=== PATIENT | male | born 1965 | race Two or more races ===

== ENCOUNTER 2017-08-13 17:28 | Inpatient (IN) | payer MEDICAID ==
[~2017-08-13] VITALS: Ht 162.6 cm; Wt 55.4 kg
[2017-08-13 18:52] LABS: Basophils # (auto) 0.1 uL; Eosinophils # (auto) 0.1 uL; Eosinophils % (auto) 1.5 % (0.0-7.0); Hematocrit 38.1 % (41.0-53.0); Hemoglobin 12.2 g/dL (13.5-17.5); Lymphocytes # (auto) 2.6 uL; Lymphocytes % (auto) 32.1 % (10.0-50.0); Mean Corpuscular Hemoglobin 23.9 pg (28.0-32.0); Mean Corpuscular Hgb Conc. 31.9 g/dL (32.0-36.0); Mean Corpuscular Volume 74.9 fL (80.0-100.0); Monocytes # (auto) 0.4 uL; Monocytes % (auto) 5.1 % (0.0-12.0); Neutrophils # (auto) 4.8 uL; Neutrophils % (auto) 60.3 % (37.0-80.0); Nucleated Red Blood Cells % 0.1 %; Platelet Count (auto) 359 10^3/uL (140-450); Red Blood Cells 5.09 10^6/uL (4.5-5.90)
[2017-08-13 19:08] LABS: Albumin 2.3 g/dL (3.4-5.0); BUN/Creatinine Ratio 20.5; Bilirubin, Total 0.2 mg/dL (0.2-1.0); Calcium 8.2 mg/dL (8.5-10.1); Potassium 5.3 mmol/L (3.5-5.1); Total Protein 7.4 g/dL (6.4-8.2)
[2017-08-13] MEDS ORDERED: SODIUM CHLORIDE 0.9% 250 ML IV ONE (21:30)
[2017-08-13] MEDS ORDERED: SODIUM CHLORIDE 0.9% 1,000 ML IV ONE ×2 (21:30→22:00)
[2017-08-13] MEDS ORDERED: InsuLIN REG 1unit/0.01ml Soln (100units/ml) IV ONE (21:30)
[2017-08-13] MEDS ORDERED: DEXTROSE (50%) 50ML SYRG IV PRN ×2 (23:30→23:45)
[2017-08-13] MEDS: ACCU-CHEK COMFORT CURVE STRIP VI SCH (23:48)
[2017-08-13] MEDS: InsuLIN REG 1unit/0.01ml Soln (100units/ml) SC SCH (23:51)
[2017-08-14] MEDS ORDERED: ACCU-CHEK COMFORT CURVE STRIP VI SCH
[2017-08-14] MEDS ORDERED: InsuLIN REG 1unit/0.01ml Soln (100units/ml) SC SCH
[2017-08-14] MEDS ORDERED: cloNIDine HCL 0.1 MG TAB PO ONE (01:00)
[2017-08-14] MEDS ORDERED: TEMAZEPAM 15 MG CAP PO PRN (03:15)
[2017-08-14] MEDS ORDERED: cloNIDine HCL 0.1 MG TAB PO PRN (03:15)
[2017-08-14] MEDS ORDERED: NITROGLYCERIN 0.4 MG SL TAB SL PRN (03:15)
[2017-08-14] MEDS ORDERED: MORPHINE SULFATE 4 MG/ML SYR/VIAL IV PRN (03:15)
[2017-08-14] MEDS: InsuLIN REG 1unit/0.01ml Soln (100units/ml) SC SCH ×5 (03:30→20:10)
[2017-08-14] MEDS: SODIUM CHLORIDE 0.9% 1,000 ML IV SCH ×2 (03:30→06:31)
[2017-08-14] MEDS: ACCU-CHEK COMFORT CURVE STRIP VI SCH ×5 (03:30→20:10)
[2017-08-14 04:33] LABS: Albumin 1.8 g/dL (3.4-5.0); BUN/Creatinine Ratio 24.6; Calcium 8.2 mg/dL (8.5-10.1); Potassium 4.2 mmol/L (3.5-5.1)
[2017-08-14 04:36] LABS: Bilirubin, Total 0.1 mg/dL (0.2-1.0); Total Protein 6.3 g/dL (6.4-8.2)
[2017-08-14 05:10] VITALS: BP 130/86
[2017-08-14 05:46] VITALS: BP 130/86
[2017-08-14] MEDS ORDERED: InsuLIN REG 1unit/0.01ml Soln (100units/ml) ONE (08:15)
[2017-08-14] MEDS: FAMOTIDINE 20 MG TAB PO SCH ×2 (08:56→20:09)
[2017-08-14] MEDS: ENOXAPARIN SOD 40 MG/0.4 ML SYRINGE SC SCH (08:56)
[2017-08-14] MEDS: ACETAMINOPHEN 325 MG TAB PO PRN (08:56)
[2017-08-14] MEDS: amLODIPine BESYLATE 5 MG TAB PO SCH (08:57)
[2017-08-14 09:48] VITALS: BP 154/94
[2017-08-14 13:44] LABS: % Iron Saturation 12.5 % (20-55)
[2017-08-14 14:02] VITALS: BP 169/107
[2017-08-14 15:10] LABS: Alcohol, Urine < 3.0 mg/dL (0-5); Amphetamine Screen, Urine NEGATIVE (NEGATIVE); Barbiturate Scree,Urine NEGATIVE (NEGATIVE); Benzodiazephine Screen, Urine NEGATIVE (NEGATIVE); Cannabinoid Screen, Urine NEGATIVE (NEGATIVE); Cocaine Screen, Urine NEGATIVE (NEGATIVE); Opiate Scree,Urine NEGATIVE (NEGATIVE); Phencyclidine Screen, Urine NEGATIVE (NEGATIVE)
[2017-08-14 16:29] VITALS: BP 144/92
[2017-08-14] MEDS: HYDROcodone-ACET 5/325MG TAB PO PRN (20:09)
[2017-08-14] MEDS: INSULIN 70/30 1unit/0.01ml Susp (100units/ml) SC SCH (22:00)
[2017-08-14 22:57] VITALS: BP 155/100
[2017-08-15] MEDS: ACCU-CHEK COMFORT CURVE STRIP VI SCH ×6 (00:22→20:26)
[2017-08-15] MEDS: InsuLIN REG 1unit/0.01ml Soln (100units/ml) SC SCH ×5 (00:22→17:00)
[2017-08-15 05:57] VITALS: BP 150/102
[2017-08-15 06:04] LABS: BUN/Creatinine Ratio 25.2; Calcium 7.8 mg/dL (8.5-10.1); Potassium 4.4 mmol/L (3.5-5.1)
[2017-08-15 08:00] VITALS: BP 158/101
[2017-08-15] MEDS: HYDROcodone-ACET 5/325MG TAB PO PRN ×2 (08:44→23:07)
[2017-08-15] MEDS: FAMOTIDINE 20 MG TAB PO SCH ×2 (09:52→20:22)
[2017-08-15] MEDS: ENOXAPARIN SOD 40 MG/0.4 ML SYRINGE SC SCH (09:52)
[2017-08-15] MEDS: amLODIPine BESYLATE 5 MG TAB PO SCH (09:53)
[2017-08-15] MEDS: ONDANSETRON HCL 4 MG/2 ML VIAL IV PRN ×2 (09:58→18:38)
[2017-08-15] MEDS: INSULIN 70/30 1unit/0.01ml Susp (100units/ml) SC SCH ×2 (09:58→20:22)
[2017-08-15] MEDS ORDERED: DEXTROSE (50%) 50ML SYRG IV PRN (11:15)
[2017-08-15] MEDS ORDERED: ISOSORBIDE MONONITRATE 60 MG TAB PO ONE (11:15)
[2017-08-15 12:38] VITALS: BP 145/94
[2017-08-15 16:26] VITALS: BP 139/92
[2017-08-15 21:29] VITALS: BP 138/94
[2017-08-15] MEDS ORDERED: ATORVASTATIN 20 MG TAB PO SCH (22:00)
[2017-08-15] MEDS ORDERED: InsuLIN REG 1unit/0.01ml Soln (100units/ml) SC SCH (22:00)
[2017-08-15] MEDS: hydrALAZINE HCL 25 MG TAB PO SCH (22:00)
[2017-08-16 05:00] VITALS: BP 146/90
[2017-08-16] MEDS: InsuLIN REG 1unit/0.01ml Soln (100units/ml) SC SCH ×2 (05:50→11:30)
[2017-08-16] MEDS: ACCU-CHEK COMFORT CURVE STRIP VI SCH ×2 (05:50→11:30)
[2017-08-16] MEDS: ACETAMINOPHEN 325 MG TAB PO PRN (05:57)
[2017-08-16] MEDS ORDERED: FERROUS SULFATE 325 MG TAB PO SCH (08:00)
[2017-08-16] MEDS: HYDROcodone-ACET 5/325MG TAB PO PRN (08:21)
[2017-08-16 09:36] VITALS: BP 140/99
[2017-08-16] MEDS: FAMOTIDINE 20 MG TAB PO SCH (09:40)
[2017-08-16] MEDS: hydrALAZINE HCL 25 MG TAB PO SCH (09:42)
[2017-08-16] MEDS: ENOXAPARIN SOD 40 MG/0.4 ML SYRINGE SC SCH (09:44)
[2017-08-16] MEDS: INSULIN 70/30 1unit/0.01ml Susp (100units/ml) SC SCH (09:59)
[2017-08-16] MEDS: ONDANSETRON HCL 4 MG/2 ML VIAL IV PRN (09:59)
[2017-08-16] MEDS ORDERED: amLODIPine BESYLATE 5 MG TAB PO SCH (10:00)
[2017-08-16] MEDS ORDERED: ISOSORBIDE MONONITRATE 60 MG TAB PO SCH (10:00)
[2017-08-16] MEDS ORDERED: HYDR25TA35 PO (10:32)
[2017-08-16] MEDS ORDERED: FER325T PO (10:32)
[2017-08-16] MEDS ORDERED: ATOR20TA50 PO (10:32)
[2017-08-16] MEDS ORDERED: ISO60SRT PO (10:32)
[2017-08-16] MEDS ORDERED: AML5T PO (10:32)
[2017-08-16 11:22] VITALS: BP 144/93
[2017-08-16 13:00] VITALS: BP 144/93
[2017-08-16 16:41] VITALS: BP 109/75
== END 2017-08-16 18:34 | disposition home or self-care (01) | DRG 420 ==
LOC: ER 17:36 → TELE-WESTW 17:37 → WEST WING 08-14 04:15 → ER 08-14 04:15 → WEST WING 08-16 00:04
PROVIDERS: ADMIT Nurse Practitioner; ATTEND Internal Medicine
DX: E11.65 Type 2 diabetes mellitus with hyperglycemia (principal); N17.0 Acute kidney failure with tubular necrosis; E43 Unspecified severe protein-calorie malnutrition; E11.21 Type 2 diabetes mellitus with diabetic nephropathy; I13.10 Hypertensive heart and chronic kidney disease without heart failure, with stage 1 through stage 4 chronic kidney disease, or unspecified chronic kidney disease; E86.0 Dehydration; D50.9 Iron deficiency anemia, unspecified; F17.210 Nicotine dependence, cigarettes, uncomplicated; E11.40 Type 2 diabetes mellitus with diabetic neuropathy, unspecified; N18.2 Chronic kidney disease, stage 2 (mild); E11.22 Type 2 diabetes mellitus with diabetic chronic kidney disease; G47.00 Insomnia, unspecified; E11.319 Type 2 diabetes mellitus with unspecified diabetic retinopathy without macular edema; E87.5 Hyperkalemia; N18.3 Chronic kidney disease, stage 3 (moderate); Z83.3 Family history of diabetes mellitus; Z89.411 Acquired absence of right great toe; Z91.14 Patient's other noncompliance with medication regimen; Z68.21 Body mass index [BMI] 21.0-21.9, adult
CPT/HCPCS: 36415; 71045; 76775; 80048; 80053; 80061; 80307; 82728; 82962; 83036; 83540; 83550; 85025; 93005; 96361; 96374; J1815; J2405

== ENCOUNTER 2017-09-26 22:39 | Inpatient (IN) | payer MEDICAID ==
[~2017-09-26] VITALS: Ht 162.6 cm
[~2017-09-26 22:39] MED LIST: AML5T PO; ATOR20TA50 PO; FER325T PO; HYDR25TA35 PO; ISO60SRT PO
[2017-09-27 00:13] LABS: Basophils # (auto) 0.1 uL; Eosinophils # (auto) 0.3 uL; Hemoglobin 8.5 g/dL (13.5-17.5); Lymphocytes # (auto) 1.7 uL; Monocytes # (auto) 0.8 uL
[2017-09-27 00:16] LABS: Eosinophils % (auto) 4.1 % (0.0-7.0); Hematocrit 26.2 % (41.0-53.0); Lymphocytes % (auto) 24.3 % (10.0-50.0); Mean Corpuscular Hemoglobin 24.1 pg (28.0-32.0); Mean Corpuscular Hgb Conc. 32.6 g/dL (32.0-36.0); Monocytes % (auto) 11.5 % (0.0-12.0); Neutrophils # (auto) 4.1 uL; Neutrophils % (auto) 59.1 % (37.0-80.0); Nucleated Red Blood Cells % 0.1 %; Platelet Count (auto) 435 10^3/uL (140-450); Red Blood Cells 3.54 10^6/uL (4.5-5.90)
[2017-09-27 00:20] LABS: Albumin 2.3 g/dL (3.4-5.0); Calcium 7.8 mg/dL (8.5-10.1)
[2017-09-27 00:21] LABS: Red Cell Distribution Width 21.8 % (11.8-14.3)
[2017-09-27 00:23] LABS: Bilirubin, Total 0.3 mg/dL (0.2-1.0); Total Protein 6.9 g/dL (6.4-8.2)
[2017-09-27 07:39] LABS: INR 1.02 (0.9-1.15); Partial Thromboplastin Time 30.7 sec (22.64-33.71); Prothrombin Time 11.1 sec (9.37-12.3)
[2017-09-27] MEDS ORDERED: LORazepam 0.5 MG TAB PO PRN (08:45)
[2017-09-27] MEDS ORDERED: ACETAMINOPHEN 500 MG TAB PO PRN (08:45)
[2017-09-27] MEDS ORDERED: LACTULOSE 20Gm/30ML SOLN PO PRN (08:45)
[2017-09-27] MEDS ORDERED: NITROGLYCERIN 0.4 MG SL TAB SL PRN (08:45)
[2017-09-27] MEDS ORDERED: DEXTROSE (50%) 50ML SYRG IV PRN (08:45)
[2017-09-27] MEDS ORDERED: MORPHINE SULFATE 4 MG/ML SYR/VIAL IV PRN ×2 (08:45)
[2017-09-27] MEDS ORDERED: PROMETHAZINE HCL 25 MG/ML 1ML IV PRN (08:45)
[2017-09-27] MEDS ORDERED: LIDOCAINE 2% JELLY 11ml (GLYDO) ONE (09:08)
[2017-09-27] MEDS ORDERED: CARVEDILOL 3.125 MG TAB PO ONE (09:15)
[2017-09-27] MEDS ORDERED: cefTRIAXone 1GM/10ml IVPUSH 10 ML IV ONE (10:00)
[2017-09-27] MEDS: ASPirin 81 mg TAB PO SCH (10:56)
[2017-09-27] MEDS: PANTOPRAZOLE 40 MG TAB PO SCH (10:56)
[2017-09-27] MEDS: ENALAPRIL MALEATE 2.5 MG TAB PO SCH (10:58)
[2017-09-27] MEDS: FUROSEMIDE 40 MG/4 ML VIAL IV SCH ×2 (10:58→18:10)
[2017-09-27] MEDS: ENOXAPARIN SOD 40 MG/0.4 ML SYRINGE SC SCH (10:59)
[2017-09-27] MEDS: NITROGLYCERIN 0.2MG/HR TOPICAL PATCH TD SCH (11:00)
[2017-09-27] MEDS: InsuLIN REG 1unit/0.01ml Soln (100units/ml) SC SCH ×3 (11:01→22:07)
[2017-09-27] MEDS: ACCU-CHEK COMFORT CURVE STRIP VI SCH ×3 (11:01→21:49)
[2017-09-27 11:41] LABS: Urine Amorphous Crystal FEW /hpf (None Seen); Urine Bacteria FEW /hpf (None Seen); Urine Blood 2+ /uL (Negative); Urine Mucus FEW (None Seen); Urine Specific Gravity 1.013 (1.001-1.035); Urine WBC 4 /hpf (0 - 3)
[2017-09-27 12:15] LABS: Alcohol, Urine < 3.0 mg/dL (0-5); Amphetamine Screen, Urine NEGATIVE (NEGATIVE); Barbiturate Scree,Urine NEGATIVE (NEGATIVE); Benzodiazephine Screen, Urine NEGATIVE (NEGATIVE); Cannabinoid Screen, Urine NEGATIVE (NEGATIVE); Cocaine Screen, Urine NEGATIVE (NEGATIVE); Opiate Scree,Urine NEGATIVE (NEGATIVE); Phencyclidine Screen, Urine NEGATIVE (NEGATIVE)
[2017-09-27 12:26] LABS: Hematocrit 25.3 % (41.0-53.0); Hemoglobin 8.1 g/dL (13.5-17.5)
[2017-09-27 13:00] VITALS: BP 140/82
[2017-09-27] MEDS: CLINDAMYCIN 600MG IV 50 ML IV SCH ×2 (13:44→21:47)
[2017-09-27] MEDS: SODIUM CHLOR 0.9% PF (SALINE LOCK) 10ML VIAL/SYR IV SCH ×2 (13:44→21:49)
[2017-09-27 17:00] VITALS: BP 146/75
[2017-09-27] MEDS ORDERED: MORPHINE SULFATE 8mg/ml INJ SDV IV PRN ×2 (18:00)
[2017-09-27 18:14] LABS: Hemoglobin 8.3 g/dL (13.5-17.5)
[2017-09-27 18:16] LABS: Hematocrit 25.9 % (41.0-53.0)
[2017-09-27] MEDS: CARVEDILOL 3.125 MG TAB PO SCH (21:48)
[2017-09-27 22:00] VITALS: BP 131/72
[2017-09-28 02:07] LABS: Hemoglobin 8.3 g/dL (13.5-17.5)
[2017-09-28 05:00] VITALS: BP 126/75
[2017-09-28] MEDS: FUROSEMIDE 40 MG/4 ML VIAL IV SCH ×2 (06:26→16:59)
[2017-09-28] MEDS: CLINDAMYCIN 600MG IV 50 ML IV SCH ×2 (06:26→14:15)
[2017-09-28] MEDS: ACCU-CHEK COMFORT CURVE STRIP VI SCH ×4 (06:27→21:45)
[2017-09-28] MEDS: InsuLIN REG 1unit/0.01ml Soln (100units/ml) SC SCH ×4 (06:27→21:53)
[2017-09-28] MEDS: SODIUM CHLOR 0.9% PF (SALINE LOCK) 10ML VIAL/SYR IV SCH ×3 (06:27→21:45)
[2017-09-28 07:04] LABS: Basophils # (auto) 0.1 uL; Basophils % (auto) 0.9 % (0.0-2.0); Monocytes # (auto) 0.7 uL; White Blood Cell 6.4 10^3/uL (4.4-10.8)
[2017-09-28 07:10] LABS: Eosinophils # (auto) 0.3 uL; Eosinophils % (auto) 5.3 % (0.0-7.0); Hematocrit 25.5 % (41.0-53.0); Hemoglobin 8.2 g/dL (13.5-17.5); Lymphocytes % (auto) 31.8 % (10.0-50.0); Mean Corpuscular Hgb Conc. 32.3 g/dL (32.0-36.0); Mean Corpuscular Volume 74.2 fL (80.0-100.0); Monocytes % (auto) 10.8 % (0.0-12.0); Neutrophils # (auto) 3.3 uL; Neutrophils % (auto) 51.2 % (37.0-80.0); Nucleated Red Blood Cells % 0.2 %; Platelet Count (auto) 400 10^3/uL (140-450); Red Blood Cells 3.44 10^6/uL (4.5-5.90)
[2017-09-28 07:21] LABS: Albumin 2.1 g/dL (3.4-5.0); Bilirubin, Total 0.3 mg/dL (0.2-1.0); Calcium 7.9 mg/dL (8.5-10.1); Potassium 5.3 mmol/L (3.5-5.1); Total Protein 6.6 g/dL (6.4-8.2)
[2017-09-28 09:00] VITALS: BP 126/72
[2017-09-28] MEDS ORDERED: cefTRIAXone 1GM/10ml IVPUSH 10 ML IV SCH (09:00)
[2017-09-28] MEDS: ENOXAPARIN SOD 40 MG/0.4 ML SYRINGE SC SCH (09:31)
[2017-09-28] MEDS: NITROGLYCERIN 0.2MG/HR TOPICAL PATCH TD SCH (09:33)
[2017-09-28] MEDS: PANTOPRAZOLE 40 MG TAB PO SCH (09:34)
[2017-09-28] MEDS: CARVEDILOL 3.125 MG TAB PO SCH ×2 (09:34→21:45)
[2017-09-28] MEDS: ENALAPRIL MALEATE 2.5 MG TAB PO SCH (09:34)
[2017-09-28] MEDS: ASPirin 81 mg TAB PO SCH (09:35)
[2017-09-28] MEDS ORDERED: POTASSIUM CHL 20 Meq TABLET PO SCH (10:00)
[2017-09-28 13:00] VITALS: BP 145/84
[2017-09-28 17:11] VITALS: BP 137/94
[2017-09-28 22:00] VITALS: BP 154/97
[2017-09-29 05:00] VITALS: BP 143/82
[2017-09-29] MEDS: SODIUM CHLOR 0.9% PF (SALINE LOCK) 10ML VIAL/SYR IV SCH ×3 (06:04→22:24)
[2017-09-29] MEDS: FUROSEMIDE 40 MG/4 ML VIAL IV SCH ×2 (06:04→17:17)
[2017-09-29] MEDS: ACCU-CHEK COMFORT CURVE STRIP VI SCH ×4 (06:05→22:25)
[2017-09-29] MEDS: InsuLIN REG 1unit/0.01ml Soln (100units/ml) SC SCH ×4 (06:19→22:55)
[2017-09-29 06:40] LABS: Calcium 7.9 mg/dL (8.5-10.1)
[2017-09-29 06:47] LABS: Potassium 5.7 mmol/L (3.5-5.1)
[2017-09-29] MEDS ORDERED: SODIUM POLYSTYRENE SULF 15GM/60ML SUSP PO ONE (07:00)
[2017-09-29 09:12] VITALS: BP 142/89
[2017-09-29] MEDS: PANTOPRAZOLE 40 MG TAB PO SCH (10:32)
[2017-09-29] MEDS: ASPirin 81 mg TAB PO SCH (10:32)
[2017-09-29] MEDS: CARVEDILOL 3.125 MG TAB PO SCH ×2 (10:33→22:24)
[2017-09-29] MEDS: NITROGLYCERIN 0.2MG/HR TOPICAL PATCH TD SCH (10:34)
[2017-09-29] MEDS: ENOXAPARIN SOD 40 MG/0.4 ML SYRINGE SC SCH (10:34)
[2017-09-29 13:00] VITALS: BP 155/96
[2017-09-29 17:09] VITALS: BP 153/92
[2017-09-29] MEDS ORDERED: cefTRIAXone 1GM/10ml IVPUSH 10 ML IV ONE (20:00)
[2017-09-29 22:00] VITALS: BP 155/99
[2017-09-29] MEDS: NYSTATIN TOPICAL POWDER 15GM TOP SCH (23:34)
[2017-09-30 05:00] VITALS: BP 156/98
[2017-09-30] MEDS: SODIUM CHLOR 0.9% PF (SALINE LOCK) 10ML VIAL/SYR IV SCH ×3 (06:14→20:21)
[2017-09-30] MEDS: FUROSEMIDE 40 MG/4 ML VIAL IV SCH ×2 (06:14→20:19)
[2017-09-30] MEDS: ACCU-CHEK COMFORT CURVE STRIP VI SCH ×4 (06:14→23:55)
[2017-09-30 06:26] LABS: Basophils # (auto) 0.1 uL; Eosinophils # (auto) 0.4 uL; Lymphocytes # (auto) 1.8 uL; Lymphocytes % (auto) 30.1 % (10.0-50.0); Mean Corpuscular Hgb Conc. 32.7 g/dL (32.0-36.0); Monocytes # (auto) 0.7 uL; White Blood Cell 5.9 10^3/uL (4.4-10.8)
[2017-09-30 06:29] LABS: Hematocrit 25.5 % (41.0-53.0); Hemoglobin 8.3 g/dL (13.5-17.5); Mean Corpuscular Hemoglobin 23.9 pg (28.0-32.0); Mean Corpuscular Volume 73.2 fL (80.0-100.0); Monocytes % (auto) 11.3 % (0.0-12.0); Neutrophils % (auto) 51.6 % (37.0-80.0); Nucleated Red Blood Cells % 0.1 %; Platelet Count (auto) 388 10^3/uL (140-450); Red Blood Cells 3.48 10^6/uL (4.5-5.90)
[2017-09-30] MEDS: InsuLIN REG 1unit/0.01ml Soln (100units/ml) SC SCH ×4 (06:31→22:00)
[2017-09-30 06:37] LABS: Red Cell Distribution Width 22.3 % (11.8-14.3)
[2017-09-30 06:50] LABS: Calcium 7.9 mg/dL (8.5-10.1); Potassium 5.2 mmol/L (3.5-5.1)
[2017-09-30 06:57] LABS: BUN/Creatinine Ratio 33.3
[2017-09-30 09:00] VITALS: BP 136/87
[2017-09-30] MEDS: NYSTATIN TOPICAL POWDER 15GM TOP SCH ×2 (10:12→23:51)
[2017-09-30] MEDS: NITROGLYCERIN 0.2MG/HR TOPICAL PATCH TD SCH (10:12)
[2017-09-30] MEDS: cefTRIAXone 1GM/10ml IVPUSH 10 ML IV SCH (10:12)
[2017-09-30] MEDS: CARVEDILOL 3.125 MG TAB PO SCH ×2 (10:13→23:50)
[2017-09-30] MEDS: PANTOPRAZOLE 40 MG TAB PO SCH (10:13)
[2017-09-30] MEDS: ASPirin 81 mg TAB PO SCH (10:13)
[2017-09-30] MEDS: ENOXAPARIN SOD 40 MG/0.4 ML SYRINGE SC SCH (10:14)
[2017-09-30 13:00] VITALS: BP 156/84
[2017-09-30] MEDS ORDERED: ALBUMIN 25% 100 ML IV ONE (15:00)
[2017-09-30 17:22] VITALS: BP 159/92
[2017-09-30 18:12] LABS: % Iron Saturation 8.3 % (20-55)
[2017-09-30 18:22] LABS: Folate (Folic Acid) 15.58 ng/mL (5.38-24)
[2017-09-30] MEDS: FERROUS SULFATE 325 MG TAB PO SCH (18:43)
[2017-09-30] MEDS ORDERED: IOHEXOL 300 MG/ML 100ML BOTTLE IJ ONE (19:30)
[2017-09-30] MEDS ORDERED: GASTROGRAFIN 30 ML SOL ONE (19:30)
[2017-09-30 22:00] VITALS: BP 155/95
[2017-10-01 04:57] VITALS: BP 166/92
[2017-10-01] MEDS: SODIUM CHLOR 0.9% PF (SALINE LOCK) 10ML VIAL/SYR IV SCH ×3 (07:01→21:27)
[2017-10-01] MEDS: ACCU-CHEK COMFORT CURVE STRIP VI SCH ×4 (07:02→21:47)
[2017-10-01] MEDS: FUROSEMIDE 40 MG/4 ML VIAL IV SCH ×2 (07:02→18:21)
[2017-10-01] MEDS: InsuLIN REG 1unit/0.01ml Soln (100units/ml) SC SCH ×4 (07:03→21:47)
[2017-10-01 07:16] LABS: Potassium 5.3 mmol/L (3.5-5.1)
[2017-10-01 07:21] LABS: Calcium 8.5 mg/dL (8.5-10.1)
[2017-10-01 09:00] VITALS: BP 120/87
[2017-10-01] MEDS: PANTOPRAZOLE 40 MG TAB PO SCH (09:03)
[2017-10-01] MEDS: cefTRIAXone 1GM/10ml IVPUSH 10 ML IV SCH (09:03)
[2017-10-01] MEDS: FERROUS SULFATE 325 MG TAB PO SCH (09:03)
[2017-10-01] MEDS: ASPirin 81 mg TAB PO SCH (09:03)
[2017-10-01] MEDS: ENOXAPARIN SOD 40 MG/0.4 ML SYRINGE SC SCH (09:04)
[2017-10-01] MEDS: CARVEDILOL 3.125 MG TAB PO SCH ×2 (09:04→21:28)
[2017-10-01] MEDS: NYSTATIN TOPICAL POWDER 15GM TOP SCH ×2 (11:23→21:30)
[2017-10-01] MEDS ORDERED: SODIUM POLYSTYRENE SULF 15GM/60ML SUSP PO ONE (11:45)
[2017-10-01] MEDS ORDERED: MIDAZOLAM HCL 1MG/1ML-2 ML VIAL ONE (12:21)
[2017-10-01] MEDS ORDERED: fentaNYL CITRATE 100 MCG/2 ML VL ONE (12:21)
[2017-10-01 13:00] VITALS: BP 134/84
[2017-10-01] MEDS ORDERED: LIDOCAINE 2% (LOCAL ANESTH.) PF 5ml SDV ONE (13:44)
[2017-10-01 17:00] VITALS: BP 171/99
[2017-10-01] MEDS: SODIUM POLYSTYRENE SULF 15GM/60ML SUSP PO SCH (21:29)
[2017-10-01] MEDS: HYDROcodone-ACET 5/325MG TAB PO PRN (21:38)
[2017-10-01] MEDS: TEMAZEPAM 15 MG CAP PO PRN (21:39)
[2017-10-01 22:00] VITALS: BP 165/100
[2017-10-02 05:00] VITALS: BP 147/91
[2017-10-02] MEDS: SODIUM CHLOR 0.9% PF (SALINE LOCK) 10ML VIAL/SYR IV SCH ×3 (06:56→22:05)
[2017-10-02] MEDS: InsuLIN REG 1unit/0.01ml Soln (100units/ml) SC SCH ×4 (06:57→22:05)
[2017-10-02] MEDS: FUROSEMIDE 40 MG/4 ML VIAL IV SCH (06:57)
[2017-10-02] MEDS: ACCU-CHEK COMFORT CURVE STRIP VI SCH ×4 (06:58→22:05)
[2017-10-02 09:00] VITALS: BP 177/92
[2017-10-02] MEDS: ASPirin 81 mg TAB PO SCH (10:00)
[2017-10-02] MEDS: NYSTATIN TOPICAL POWDER 15GM TOP SCH ×2 (10:00→22:05)
[2017-10-02 10:51] LABS: BUN/Creatinine Ratio 27.6; Calcium 8.2 mg/dL (8.5-10.1); Potassium 4.8 mmol/L (3.5-5.1)
[2017-10-02] MEDS: SODIUM POLYSTYRENE SULF 15GM/60ML SUSP PO SCH ×2 (11:22→22:05)
[2017-10-02] MEDS: CARVEDILOL 3.125 MG TAB PO SCH ×2 (11:22→22:04)
[2017-10-02] MEDS: PANTOPRAZOLE 40 MG TAB PO SCH (11:22)
[2017-10-02] MEDS: ENOXAPARIN SOD 40 MG/0.4 ML SYRINGE SC SCH (11:22)
[2017-10-02] MEDS ORDERED: amLODIPine BESYLATE 5 MG TAB PO ONE (11:45)
[2017-10-02] MEDS: cefTRIAXone 1GM/10ml IVPUSH 10 ML IV SCH (12:13)
[2017-10-02] MEDS: SODIUM FERR GLUC 62.5MG/5ML 125 MG in SODIUM CHL 0.9% 100 ML IV SCH (12:13)
[2017-10-02 13:00] VITALS: BP 164/94
[2017-10-02 17:09] VITALS: BP 158/83
[2017-10-02 22:00] VITALS: BP 158/92
[2017-10-02] MEDS: HYDROcodone-ACET 5/325MG TAB PO PRN (22:04)
[2017-10-02] MEDS: TEMAZEPAM 15 MG CAP PO PRN (22:05)
[2017-10-03 05:00] VITALS: BP 145/86
[2017-10-03] MEDS: SODIUM CHLOR 0.9% PF (SALINE LOCK) 10ML VIAL/SYR IV SCH ×3 (06:00→22:00)
[2017-10-03] MEDS: ACCU-CHEK COMFORT CURVE STRIP VI SCH ×4 (06:31→22:25)
[2017-10-03 06:32] LABS: Basophils # (auto) 0.1 uL; Basophils % (auto) 1.2 % (0.0-2.0); Hemoglobin 8.1 g/dL (13.5-17.5); Lymphocytes # (auto) 1.5 uL; Neutrophils # (auto) 3.9 uL; Nucleated Red Blood Cells % 0.1 %; White Blood Cell 6.6 10^3/uL (4.4-10.8)
[2017-10-03] MEDS: InsuLIN REG 1unit/0.01ml Soln (100units/ml) SC SCH ×4 (06:32→22:00)
[2017-10-03 06:36] LABS: Eosinophils # (auto) 0.2 uL; Eosinophils % (auto) 3.7 % (0.0-7.0); Hematocrit 24.9 % (41.0-53.0); Lymphocytes % (auto) 22.4 % (10.0-50.0); Mean Corpuscular Hemoglobin 24.2 pg (28.0-32.0); Mean Corpuscular Hgb Conc. 32.6 g/dL (32.0-36.0); Mean Corpuscular Volume 74.1 fL (80.0-100.0); Monocytes # (auto) 0.9 uL; Neutrophils % (auto) 59.7 % (37.0-80.0); Platelet Count (auto) 305 10^3/uL (140-450); Red Blood Cells 3.36 10^6/uL (4.5-5.90)
[2017-10-03 06:38] LABS: Red Cell Distribution Width 22.2 % (11.8-14.3)
[2017-10-03 06:59] LABS: BUN/Creatinine Ratio 25.2; Calcium 7.6 mg/dL (8.5-10.1); Potassium 3.6 mmol/L (3.5-5.1)
[2017-10-03 08:00] VITALS: BP 162/94
[2017-10-03 09:07] LABS: Hepatitis B Surface Antigen Negative (Negative)
[2017-10-03] MEDS ORDERED: SODIUM CHLORIDE 0.9% 1,000 ML IV SCH (09:30)
[2017-10-03 09:50] LABS: Hepatitis C Antibody Negative (Negative)
[2017-10-03 09:51] LABS: Hepatitis A Ab IgM Negative; Hepatitis B Core IgM Negative
[2017-10-03] MEDS: PANTOPRAZOLE 40 MG TAB PO SCH (10:04)
[2017-10-03] MEDS: CARVEDILOL 3.125 MG TAB PO SCH ×2 (10:05→22:00)
[2017-10-03] MEDS: amLODIPine BESYLATE 5 MG TAB PO SCH (10:05)
[2017-10-03] MEDS: HYDROcodone-ACET 5/325MG TAB PO PRN ×2 (10:15→17:32)
[2017-10-03] MEDS: NYSTATIN TOPICAL POWDER 15GM TOP SCH ×2 (10:53→22:00)
[2017-10-03] MEDS: ERTAPENEM SOD INJ 1 GM in SODIUM CHL 0.9% 50 ML IV SCH (10:53)
[2017-10-03 12:00] VITALS: BP 157/86
[2017-10-03] MEDS: SODIUM FERR GLUC 62.5MG/5ML 125 MG in SODIUM CHL 0.9% 100 ML IV SCH (15:05)
[2017-10-03 17:00] VITALS: BP 148/87
[2017-10-03] MEDS: SODIUM CHLORIDE 0.9% 1,000 ML IV SCH (19:21)
[2017-10-03 22:04] VITALS: BP 139/84
[2017-10-03] MEDS: TEMAZEPAM 15 MG CAP PO PRN (22:42)
[2017-10-04] MEDS: HYDROcodone-ACET 5/325MG TAB PO PRN ×3 (00:12→21:49)
[2017-10-04] MEDS: SODIUM CHLORIDE 0.9% 1,000 ML IV SCH (03:45)
[2017-10-04 04:57] VITALS: BP 149/98
[2017-10-04] MEDS: ACCU-CHEK COMFORT CURVE STRIP VI SCH ×4 (06:18→21:48)
[2017-10-04] MEDS: SODIUM CHLOR 0.9% PF (SALINE LOCK) 10ML VIAL/SYR IV SCH ×3 (06:18→21:52)
[2017-10-04] MEDS: InsuLIN REG 1unit/0.01ml Soln (100units/ml) SC SCH ×4 (06:18→21:48)
[2017-10-04 06:47] LABS: Calcium 7.7 mg/dL (8.5-10.1); Potassium 3.7 mmol/L (3.5-5.1)
[2017-10-04 08:00] VITALS: BP 161/95
[2017-10-04 08:42] VITALS: BP 161/95
[2017-10-04] MEDS: amLODIPine BESYLATE 5 MG TAB PO SCH (09:35)
[2017-10-04] MEDS: CARVEDILOL 3.125 MG TAB PO SCH ×2 (09:35→21:48)
[2017-10-04] MEDS: PANTOPRAZOLE 40 MG TAB PO SCH (09:35)
[2017-10-04] MEDS: NYSTATIN TOPICAL POWDER 15GM TOP SCH ×2 (09:36→21:48)
[2017-10-04] MEDS: ERTAPENEM SOD INJ 1 GM in SODIUM CHL 0.9% 50 ML IV SCH (10:40)
[2017-10-04] MEDS: SOD CHL 0.45% 1,000 ML IV SCH ×2 (11:11→21:30)
[2017-10-04] MEDS: SODIUM FERR GLUC 62.5MG/5ML 125 MG in SODIUM CHL 0.9% 100 ML IV SCH (12:00)
[2017-10-04 13:00] VITALS: BP 144/77
[2017-10-04 16:51] VITALS: BP 130/81
[2017-10-04] MEDS: TEMAZEPAM 15 MG CAP PO PRN (21:49)
[2017-10-04 22:00] VITALS: BP 129/77
[2017-10-05] VITALS (7 sets, daily range): BP systolic 122–150; BP diastolic 74–97
[2017-10-05] MEDS: SODIUM CHLOR 0.9% PF (SALINE LOCK) 10ML VIAL/SYR IV SCH ×3 (06:00→22:00)
[2017-10-05] MEDS: SOD CHL 0.45% 1,000 ML IV SCH ×2 (06:35→15:55)
[2017-10-05] MEDS: InsuLIN REG 1unit/0.01ml Soln (100units/ml) SC SCH ×4 (06:36→22:01)
[2017-10-05] MEDS: ACCU-CHEK COMFORT CURVE STRIP VI SCH ×4 (06:36→22:00)
[2017-10-05 07:14] LABS: Basophils # (auto) 0.1 uL; Basophils % (auto) 1.1 % (0.0-2.0); Eosinophils # (auto) 0.3 uL; Hemoglobin 8.2 g/dL (13.5-17.5); Monocytes # (auto) 0.8 uL; Nucleated Red Blood Cells % 0.1 %
[2017-10-05 07:21] LABS: Eosinophils % (auto) 4.3 % (0.0-7.0); Hematocrit 25.1 % (41.0-53.0); Lymphocytes # (auto) 1.9 uL; Mean Corpuscular Hemoglobin 24.5 pg (28.0-32.0); Mean Corpuscular Hgb Conc. 32.8 g/dL (32.0-36.0); Mean Corpuscular Volume 74.8 fL (80.0-100.0); Monocytes % (auto) 12.5 % (0.0-12.0); Neutrophils # (auto) 3.4 uL; Neutrophils % (auto) 52.1 % (37.0-80.0); Platelet Count (auto) 299 10^3/uL (140-450); Red Blood Cells 3.35 10^6/uL (4.5-5.90); White Blood Cell 6.4 10^3/uL (4.4-10.8)
[2017-10-05 07:28] LABS: Red Cell Distribution Width 21.6 % (11.8-14.3)
[2017-10-05 07:33] LABS: BUN/Creatinine Ratio 26.8; Calcium 7.8 mg/dL (8.5-10.1); Potassium 4.2 mmol/L (3.5-5.1)
[2017-10-05] MEDS: PANTOPRAZOLE 40 MG TAB PO SCH (09:30)
[2017-10-05] MEDS: amLODIPine BESYLATE 5 MG TAB PO SCH (09:31)
[2017-10-05] MEDS: ERTAPENEM SOD INJ 1 GM in SODIUM CHL 0.9% 50 ML IV SCH (09:32)
[2017-10-05] MEDS: CARVEDILOL 3.125 MG TAB PO SCH ×2 (09:32→22:00)
[2017-10-05] MEDS: HYDROcodone-ACET 5/325MG TAB PO PRN ×2 (09:40→20:12)
[2017-10-05] MEDS: NYSTATIN TOPICAL POWDER 15GM TOP SCH ×2 (09:43→22:01)
[2017-10-05] MEDS: SODIUM FERR GLUC 62.5MG/5ML 125 MG in SODIUM CHL 0.9% 100 ML IV SCH (14:21)
[2017-10-05] MEDS: TEMAZEPAM 15 MG CAP PO PRN (22:11)
[2017-10-06] MEDS: SOD CHL 0.45% 1,000 ML IV SCH ×3 (04:10→21:22)
[2017-10-06 05:00] VITALS: BP 152/97
[2017-10-06] MEDS: SODIUM CHLOR 0.9% PF (SALINE LOCK) 10ML VIAL/SYR IV SCH ×3 (05:54→21:21)
[2017-10-06] MEDS: InsuLIN REG 1unit/0.01ml Soln (100units/ml) SC SCH ×4 (06:37→21:55)
[2017-10-06] MEDS: ACCU-CHEK COMFORT CURVE STRIP VI SCH ×4 (06:37→21:20)
[2017-10-06 08:00] VITALS: BP 149/88
[2017-10-06 09:08] VITALS: BP 149/88
[2017-10-06] MEDS: PANTOPRAZOLE 40 MG TAB PO SCH (09:28)
[2017-10-06] MEDS: amLODIPine BESYLATE 5 MG TAB PO SCH (09:28)
[2017-10-06] MEDS: HYDROcodone-ACET 5/325MG TAB PO PRN ×2 (09:28→20:18)
[2017-10-06] MEDS: NYSTATIN TOPICAL POWDER 15GM TOP SCH ×2 (09:29→21:21)
[2017-10-06] MEDS: CARVEDILOL 3.125 MG TAB PO SCH ×2 (09:30→21:20)
[2017-10-06] MEDS: ERTAPENEM SOD INJ 1 GM in SODIUM CHL 0.9% 50 ML IV SCH (09:37)
[2017-10-06] MEDS: SODIUM FERR GLUC 62.5MG/5ML 125 MG in SODIUM CHL 0.9% 100 ML IV SCH (11:24)
[2017-10-06 13:52] VITALS: BP 146/70
[2017-10-06 17:37] VITALS: BP 147/95
[2017-10-06] MEDS: TEMAZEPAM 15 MG CAP PO PRN (21:20)
[2017-10-06 21:44] VITALS: BP 136/91
[2017-10-07 04:43] VITALS: BP 134/75
[2017-10-07] MEDS: SOD CHL 0.45% 1,000 ML IV SCH ×2 (05:42→18:18)
[2017-10-07] MEDS: InsuLIN REG 1unit/0.01ml Soln (100units/ml) SC SCH ×4 (06:19→21:38)
[2017-10-07] MEDS: SODIUM CHLOR 0.9% PF (SALINE LOCK) 10ML VIAL/SYR IV SCH ×3 (06:19→21:24)
[2017-10-07] MEDS: ACCU-CHEK COMFORT CURVE STRIP VI SCH ×4 (06:20→21:25)
[2017-10-07] MEDS: HYDROcodone-ACET 5/325MG TAB PO PRN ×2 (09:12→19:29)
[2017-10-07 09:39] VITALS: BP 143/97
[2017-10-07] MEDS: ERTAPENEM SOD INJ 1 GM in SODIUM CHL 0.9% 50 ML IV SCH (10:37)
[2017-10-07] MEDS: PANTOPRAZOLE 40 MG TAB PO SCH (10:38)
[2017-10-07] MEDS: amLODIPine BESYLATE 5 MG TAB PO SCH (10:38)
[2017-10-07] MEDS: CARVEDILOL 3.125 MG TAB PO SCH ×2 (10:39→21:25)
[2017-10-07] MEDS: NYSTATIN TOPICAL POWDER 15GM TOP SCH ×2 (10:40→21:27)
[2017-10-07] MEDS: SODIUM FERR GLUC 62.5MG/5ML 125 MG in SODIUM CHL 0.9% 100 ML IV SCH (12:15)
[2017-10-07 12:41] VITALS: BP 130/70
[2017-10-07 17:11] VITALS: BP 149/80
[2017-10-07] MEDS: TEMAZEPAM 15 MG CAP PO PRN (21:25)
[2017-10-07 21:44] VITALS: BP 124/82
[2017-10-08 04:34] VITALS: BP 137/74
[2017-10-08] MEDS: SODIUM CHLOR 0.9% PF (SALINE LOCK) 10ML VIAL/SYR IV SCH ×2 (06:12→14:00)
[2017-10-08] MEDS: ACCU-CHEK COMFORT CURVE STRIP VI SCH ×2 (06:12→12:49)
[2017-10-08] MEDS: InsuLIN REG 1unit/0.01ml Soln (100units/ml) SC SCH ×2 (06:12→11:30)
[2017-10-08 08:00] VITALS: BP 142/77
[2017-10-08 09:00] VITALS: BP 143/77
[2017-10-08] MEDS: CARVEDILOL 3.125 MG TAB PO SCH (10:00)
[2017-10-08] MEDS: PANTOPRAZOLE 40 MG TAB PO SCH (10:21)
[2017-10-08] MEDS: amLODIPine BESYLATE 5 MG TAB PO SCH (10:21)
[2017-10-08] MEDS: NYSTATIN TOPICAL POWDER 15GM TOP SCH (10:22)
[2017-10-08] MEDS: ERTAPENEM SOD INJ 1 GM in SODIUM CHL 0.9% 50 ML IV SCH (10:22)
[2017-10-08] MEDS: SOD CHL 0.45% 1,000 ML IV SCH ×2 (10:37→15:00)
[2017-10-08 12:09] VITALS: BP 138/81
[2017-10-08 12:30] LABS: Basophils # (auto) 0.1 uL; Basophils % (auto) 0.8 % (0.0-2.0); Eosinophils # (auto) 0.3 uL; Eosinophils % (auto) 3.4 % (0.0-7.0); Hematocrit 24.2 % (41.0-53.0); Hemoglobin 7.6 g/dL (13.5-17.5); Lymphocytes # (auto) 1.6 uL; Lymphocytes % (auto) 19.2 % (10.0-50.0); Mean Corpuscular Hemoglobin 24.2 pg (28.0-32.0); Mean Corpuscular Hgb Conc. 31.3 g/dL (32.0-36.0); Mean Corpuscular Volume 77.2 fL (80.0-100.0); Monocytes # (auto) 0.9 uL; Monocytes % (auto) 11.4 % (0.0-12.0); Neutrophils # (auto) 5.3 uL; Neutrophils % (auto) 65.2 % (37.0-80.0); Platelet Count (auto) 258 10^3/uL (140-450); Red Blood Cells 3.13 10^6/uL (4.5-5.90); White Blood Cell 8.1 10^3/uL (4.4-10.8)
[2017-10-08 12:31] LABS: Red Cell Distribution Width 22.1 % (11.8-14.3)
[2017-10-08 12:51] LABS: BUN/Creatinine Ratio 25.4; Calcium 7.5 mg/dL (8.5-10.1); Potassium 4.5 mmol/L (3.5-5.1)
[2017-10-08 15:11] VITALS: BP 143/77
[2017-10-08] MEDS: SODIUM FERR GLUC 62.5MG/5ML 125 MG in SODIUM CHL 0.9% 100 ML IV SCH (16:25)
== END 2017-10-08 16:42 | DRG 951 ==
LOC: ER 22:41 → TELE 22:42 → TELE-WESTW 09-27 10:28 → WEST WING 10-05 19:26
PROVIDERS: ADMIT Internal Medicine; ATTEND Internal Medicine
PROC: 0T9B00Z Drainage of Bladder with Drainage Device, Open Approach (ICD-10-PCS; principal; 2017-10-01)
DX: I13.0 Hypertensive heart and chronic kidney disease with heart failure and stage 1 through stage 4 chronic kidney disease, or unspecified chronic kidney disease (principal); N17.0 Acute kidney failure with tubular necrosis; E43 Unspecified severe protein-calorie malnutrition; E11.21 Type 2 diabetes mellitus with diabetic nephropathy; E11.40 Type 2 diabetes mellitus with diabetic neuropathy, unspecified; K76.6 Portal hypertension; E83.41 Hypermagnesemia; K86.1 Other chronic pancreatitis; D50.9 Iron deficiency anemia, unspecified; F17.210 Nicotine dependence, cigarettes, uncomplicated; I50.33 Acute on chronic diastolic (congestive) heart failure; E11.22 Type 2 diabetes mellitus with diabetic chronic kidney disease; E11.319 Type 2 diabetes mellitus with unspecified diabetic retinopathy without macular edema; B96.20 Unspecified Escherichia coli [E. coli] as the cause of diseases classified elsewhere; E11.65 Type 2 diabetes mellitus with hyperglycemia; I50.31 Acute diastolic (congestive) heart failure; L03.119 Cellulitis of unspecified part of limb; N18.3 Chronic kidney disease, stage 3 (moderate); N49.2 Inflammatory disorders of scrotum; N39.0 Urinary tract infection, site not specified; Z82.3 Family history of stroke; Z82.49 Family history of ischemic heart disease and other diseases of the circulatory system; Z83.3 Family history of diabetes mellitus; Z86.73 Personal history of transient ischemic attack (TIA), and cerebral infarction without residual deficits; Z89.411 Acquired absence of right great toe
CPT/HCPCS: 10022; 10030; 36415; 51102; 71045; 74177; 76775; 76870; 77012; 80048; 80053; 80061; 80074; 80307; 81001; 82270; 82550; 82607; 82746; 82962; 83036; 83540; 83550; 83735; 83880; 84132; 84154; 84443; 84484; 85014; 85018; 85025; 85045; 85610; 85652; 85730; 86141; 86850; 86900; 86901; 87040; 87086; 87088; 87186; 93005; 93306; 93970; 96372; 96374; 96375; C1729; J1335; J1815; J2250; J3490; P9047